=== PATIENT | male | born 1960 | race Hispanic/Latino ===

== ENCOUNTER 2021-11-10 04:04 | Emergency (ER) | payer MEDICAID ==
--- NOTE | 2021-11-10 09:44 | Emergency Department Report ---
ED Extremity Problem HPI - General Chief complaint: Extremity Injury, Upper Stated complaint: LEFT HAND INFECTION Time Seen by Provider: 11/10/21 09:28 Source: patient Mode of arrival: Ambulatory Limitations: No Limitations - History of Present Illness Initial comments: 61-year-old male presents to the ER today with complaints of pain and swelling and possible infection to his left hand/left third finger. Patient states that he had trigger finger repair 3 weeks ago by a Ortho hand specialist at [place]. He states that 3 to 4 days ago he noted started noticing some discoloration, as well as increasing pain and swelling and so he became concerned that this could relate to infection. 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 He reports pain with movement of the finger but he is able to flex and extend the finger fully. He denies any fever or chills. He denies any additional symptoms at this time. He is left-hand dominant. MD Complaint: other (Finger pain, swelling, infection ) -: days(s) (3-4) - Related Data Previous Rx's Medication Instructions Recorded Last Taken Type Acetaminophen/Codeine [Tylenol 1 tab PO Q6H PRN #10 tab 11/10/21 Unknown Rx /Codeine # 3 tab] Ibuprofen [Motrin] 600 mg PO Q8H PRN #30 tablet 11/10/21 Unknown Rx Sulfamethoxazole/Trimethoprim 1 each PO BID #14 tab 11/10/21 Unknown Rx [Bactrim DS TAB] cephALEXin [Keflex] 500 mg PO Q8HR #30 cap 11/10/21 Unknown Rx ED Review of Systems ROS: Stated complaint: LEFT HAND INFECTION Other details as noted in HPI Comment: All other systems reviewed and negative Respiratory: denies: cough, shortness of breath, SOB with exertion, SOB at rest, wheezing Cardiovascular: denies: chest pain, palpitations Musculoskeletal: arthralgia Skin: other (Swelling pain and redness) Neurological: denies: headache, weakness, numbness, paresthesias, confusion, abnormal gait, vertigo Psychiatric: denies: anxiety, depression, auditory hallucinations, visual hallucinations, homicidal thoughts, suicidal thoughts Hematological/Lymphatic: denies: easy bleeding, easy bruising, swollen glands ED Past Medical Hx - Medications Home Medications: Home Medications Medication Instructions Recorded Confirmed Last Taken Type Acetaminophen/Codeine [Tylenol 1 tab PO Q6H PRN #10 tab 11/10/21 Unknown Rx /Codeine # 3 tab] Ibuprofen [Motrin] 600 mg PO Q8H PRN #30 tablet 11/10/21 Unknown Rx Sulfamethoxazole/Trimethoprim 1 each PO BID #14 tab 11/10/21 Unknown Rx [Bactrim DS TAB] cephALEXin [Keflex] 500 mg PO Q8HR #30 cap 11/10/21 Unknown Rx ED Physical Exam - General Limitations: No Limitations General appearance: alert, in no apparent distress - Head Head exam: Present: atraumatic, normocephalic, normal inspection - Eye Eye exam: Present: normal appearance, PERRL, EOMI Pupils: Present: normal accommodation - Respiratory Respiratory exam: Present: normal lung sounds bilaterally. Absent: respiratory distress, wheezes, rales, rhonchi - Cardiovascular Cardiovascular Exam: Present: regular rate, normal rhythm, normal heart sounds - GI/Abdominal GI/Abdominal exam: Present: soft. Absent: distended, tenderness, guarding, rebound - Expanded Upper Extremity Exam Left Hand L/R Front: 1 - Positive: other (Small area of induration and fluctuance noted. There is also calluses noted in that area. No streaking redness. Patient has full range of motion of the finger.) Vascular: Present: normal capillary refill, radial pulse (Normal). Absent: vascular compromise - Neurological Exam Neurological exam: Present: alert, oriented X3, CN II-XII intact, normal gait - Psychiatric Psychiatric exam: Present: normal affect, normal mood - Skin Skin exam: Present: intact ED Course Vital Signs 11/10/21 04:15 Temperature 97.5 F L Pulse Rate 81 Respiratory 18 Rate Blood Pressure 132/86 O2 Sat by Pulse 96 Oximetry - I & D Left Plantar Hand Type of Procedure: Simple Site: small Blade Size: 19 guage needle Progress: Area cleaned with alcohol. No anesthesia used. Area irrigated after drainage. Patient tolerated procedure well. No complication post I&D. ED Medical Decision Making - Medical Decision Making Patient with a small abscess just below the base of the left third finger on the palmar surface. Patient has few calluses in that area which I think is the likely source. Abscess was drained by me. See procedure note for detail. There is no evidence of cellulitis or tenosynovitis or deep space abscess on exam. Patient will be started on antibiotics and given medication for pain and he was instructed to follow-up with his orthopedic hand specialist. Patient expressed understanding agree with plan. Patient was stable at time of discharge. Critical care attestation.: If time is entered above; I have spent that time in minutes in the direct care of this critically ill patient, excluding procedure time. ED Disposition Clinical Impression: Abscess, hand Disposition: 01 HOME / SELF CARE / HOMELESS Is pt being admited?: No Does the pt Need Aspirin: No Condition: Stable Instructions: Skin Abscess, [id number] Additional Instructions: Keep the wound clean daily with soap and water. Take the Bactrim and the Keflex as prescribed. Take the pain medications as prescribed. Follow-up with your hand specialist at [place] next week. Return to the ER if symptoms changes or worsens in any way. Prescriptions: Sulfamethoxazole/Trimethoprim [Bactrim DS TAB] 1 each PO BID #14 tab cephALEXin [Keflex] 500 mg PO Q8HR #30 cap Ibuprofen [Motrin] 600 mg PO Q8H PRN #30 tablet PRN Reason: Pain Acetaminophen/Codeine [Tylenol /Codeine # 3 tab] 1 tab PO Q6H PRN #10 tab PRN Reason: Pain , Severe (7-10) Referrals: LORRAINE CRAWLEY MD [Primary Care Provider] - 3-5 Days Time of Disposition: 09:43
[2021-11-10 10:04] VITALS: BP 136/95
== END 2021-11-10 10:04 | disposition home or self-care (01) ==
LOC: ED 04:04
DX: L02.512 Cutaneous abscess of left hand (principal)
CPT/HCPCS: 99282